=== PATIENT | female | born 1940 | race Two or more races ===

== ENCOUNTER 2025-05-24 01:01 | Emergency (ER) | payer OTHER, MEDICARE ==
[~2025-05-24] VITALS: Ht 172.7 cm; Wt 72.7 kg
[2025-05-24 01:25] VITALS: TEMP 98.4
[2025-05-24] MEDS: LIDOCAINE 1% HCL (LOCAL ANESTH.) INJ 20ML MDV ID ONE (01:30)
[2025-05-24 01:37] VITALS: PULSE 97; RESP 12; O2SAT 100
[2025-05-24] MEDS: KETOROLAC TROMETH 30 MG/ML 1ML VIAL IV ONE (01:49)
--- NOTE | 2025-05-24 02:23 | ED.PDOC ---
Musculoskeletal HPI Comments 85-year-old female complaining of left knee pain and swelling. Patient states she went golfing earlier today and had to stop due to pain and swelling. 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 [id number]. States she has pending PRP treatment from her relations specialist. States she has sought relations specialist two weeks ago. Denies any trauma to the knee today. Chief Complaint: Lower Extremity Time Seen by MD: 01:20 Reviewed Notes: Nurses Notes Allergies: Coded Allergies: No Known Drug Allergy (Verified Allergy, Unknown, 05/24/25) Information Source: Patient Mode of Arrival: EMS Location: Left Extremity Location: Knee Past Medical History PAST MEDICAL HISTORY: Denies Surgical History: Denies all surgeries JAVA SOFTWARE ARCHITECT History: No Pertinent JAVA SOFTWARE ARCHITECT History Constitutional: denies: chills, diaphoresis, fatigue, fever, malaise, sweats, weakness, others EENTM: denies: blurred vision, double vision, ear bleeding, ear discharge, ear drainage, ear pain, ear ringing, eye pain, eye redness, hearing loss, mouth pain, mouth swelling, nasal discharge, nose bleeding, nose congestion, nose pain, photophobia, tearing, throat pain, throat swelling, voice changes, others Respiratory: denies: cough, hemoptysis, orthopnea, SOB at rest, shortness of breath, SOB with excertion, stridor, wheezing, others Cardiovascular: denies: chest pain, dizzy spells, diaphoresis, Dyspnea on exertion, edema, irregular heart beat, left arm pain, lightheadedness, palpitations, PND, syncope, others Gastrointestinal: denies: abdomen distended, abdominal pain, blood streaked bowels, constipated, diarrhea, dysphagia, difficulty swallowing, hematemesis, melena, nausea, poor appetite, poor fluid intake, rectal bleeding, rectal pain, vomiting, others Genitourinary: denies: abnormal vagina bleeding, burning, dyspareunia, dysuria, flank pain, frequency, hematuria, incontinence, pain, , vagina discharge, urgency, others Neurological: denies: dizziness, fainting, headache, left sided numbness, left sided weakness, numbness, paresthesia, pre-existing deficit, right sided numbness, right sided weakness, seizure, speech problems, tingling, tremors, weakness, others Musculoskeletal: reports: muscle pain, muscle stiffness; denies: back pain, gout, joint pain, joint swelling, neck pain, others Integumetry: denies: bruises, change in color, change in hair/nails, dryness, laceration, lesions, lumps, rash, wounds, others Allergic/Immunocompromised: denies: Difficulty Healing, Frequent Infections, Hives, Itching, others Hematologic/Lymphatic: denies: anemia, blood clots, easy bleeding, easy bruising, swollen glands, others Endocrine: denies: excessive hunger, excessive sweating, excessive thirst, excessive urination, flushing, intolerance to cold, intolerance to heat, unexplained weight gain, unexplained weight loss, others Physical Exam General Appearance: No Apparent Distress, Normal HEENT: Normal ENT Inspection, Pharynx Normal, TMs Normal Neck: Full Range of Motion, Non-Tender, Normal, Normal Inspection Respiratory: Chest Non-Tender, Lungs Clear, No Accessory Muscle Use, No Respiratory Distress, Normal Breath Sounds Cardiovascular: No Edema, No JVD, No Murmur, No Gallop, Normal Peripheral Pulses, Regular Rate/Rhythm Breast Exam: Deferred Gastrointestinal: No Organomegaly, Non Tender, No Pulsatile Mass, Normal Bowel Sounds, Soft Genitalia: Deferred Pelvic: Deferred Rectal: Deferred Extremities: Decreased range of motion, Inflammation (Inflammation noted over the left knee), No calf tenderness, Normal capillary refill, Normal inspection, Normal range of motion, Non-tender, No pedal edema, Other (Effusion noted of the left knee) Musculoskeletal : Apperance: Normal 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 Was a procedure done?: Yes Sedation Sedation?: No Arthrocentesis Indication: Pain Control, Diagnostic Evaluation Procedure: Sterile Preparation Injected into the joint: Lidocaine Location: Left Knee Fluid: Bloody Informed consent obtained: Yes Risks/benefits/alt described: Yes Notes Patient tolerated well Differential Diagnosis EXT Differential Diagnosis: Cellulitis, Compartment Syndrome, Sprain, Dislocation, Laceration, Gout, Neurovascular injury X-Ray, Labs, Meds, VS Vital Signs Date Time Temp Pulse Resp B/P (MAP) Pulse Ox O2 Delivery O2 Flow Rate FiO2 05/24/25 01:37 97 12 100 Room Air* 0 21 05/24/25 01:25 98.4 97 12 153/81 (105) 100 98.4 05/24/25 01:14 97.1 103 16 152/99 (116) 99 97.1 05/24/25 01:04 102 Current Medications Medications (Trade) Dose Ordered Sig/Arun Route Start Time Stop Time Status Last Admin Lidocaine HCl (Xylocaine 1%) ONCE ONCE ID 05/24/25 01:30 05/24/25 01:31 DC 05/24/25 01:30 Ketorolac Tromethamine (Toradol Injection) 30 mg ONCE ONCE IV 05/24/25 01:45 05/24/25 01:46 DC 05/24/25 01:49 X-Ray, Labs, Meds, VS Comment Imaging: X-rays and CT scans were reviewed and interpreted by this provider, imaging shows no fractures and no pathological disease. Pending radiology review. Laboratory: Labs reviewed and interpreted by this provider. No significant abnormalities noted. Patient has prior medical visits reviewed. Med reconciliation performed Vital signs reviewed Time of 1ST Reevaluation: 02:23 Reevaluation 1ST: Improved Patient Education/Counseling: Diagnosis, Treatment, Need For Follow Up (Follow up with the relations specialist) Family Education/Counseling: Diagnosis, Treatment Departure 1 Departure Time of Disposition: 02:22 Impression: Primary Impression: Effusion, left knee Disposition: 01 HOME / SELF CARE / HOMELESS Condition: Fair Discharged With: Self Comments Follow up with Dr. Rae as scheduled/next available appointment Critical Care Note Critical Care Time?: No Stability Stability form required: No Heart Score Heart Score: Heart Score Response (Comments) Value History N/A 0 EKG N/A 0 Age N/A 0 Risk Factors N/A 0 Troponin N/A 0 Total 0 [employer] May 24, 2025 02:23
[2025-05-24 02:39] VITALS: BP 148/69; PULSE 77; RESP 16
--- NOTE | 2025-05-24 06:12 | ECG ---
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
== END 2025-05-24 02:42 | disposition home or self-care (01) ==
LOC: ER 01:01 → EDBD 01:01 → EDUNIT# 01:01 → ER 02:42
DX: M25.462 Effusion, left knee (principal)
CPT/HCPCS: 20610; 87205; 93005; 96374; 99285; J1885; J2003